=== PATIENT | female | born 1930 | race Caucasian/White ===

== ENCOUNTER 2017-01-28 19:05 | Emergency (ER) | payer OTHER ==
[~2017-01-28] VITALS: Ht 160 cm; Wt 58.4 kg
[~2017-01-28 19:05] MED LIST: BUME1TAB PO; CALC200S; IRBE1TAB37 PO; NEBI2.5 PO; PRAV40TA PO; RENAL CAPS PO; SPIR25 PO; WARF2.5 PO
[2017-01-28 19:34] VITALS: BP 201/93; PULSE 90; RESP 20; TEMP 97.3; O2SAT 98
[2017-01-28] MEDS ORDERED: SODIUM CHLORIDE 0.9% FLUSH 10 ML FLUSH IVF PRN (20:00)
[2017-01-28 20:10] VITALS: BP 180/83; PULSE 96; RESP 20
[2017-01-28] MEDS ORDERED: cloNIDine HCL 0.1 MG TAB PO ONE (20:15)
--- NOTE | 2017-01-28 20:21 | RADRPT ---
EXAM DATE/TIME: 01/28/2017 19:52 [facility] COMPARISON: Report only CHEST SINGLE AP, September 27, 2012, 11:25. INDICATIONS : Chest pain. MEDICAL HISTORY : Hypertension. SURGICAL HISTORY : Open heart. ENCOUNTER: Initial ACUITY: 1 day PAIN SCORE: 0/10 LOCATION: Bilateral chest FINDINGS: Soft tissue opacity projects over the right infrahilar region, indeterminate. No infiltrate, effusion or pneumothorax. Heart size within normal limits. Tortuous thoracic aorta noted. Patient has had previous median sternotomy. CONCLUSION: 1. Possible right infrahilar mass. CT of the chest recommended, preferably with intravenous contrast. 2. Otherwise no evidence of acute cardiopulmonary disease. Mason Rothman MD on January 28, 2017 at 20:17 Board Certified Radiologist. This report was verified electronically.
--- NOTE | 2017-01-28 20:26 | PD ---
HPI Chief Complaint: Cardiac Complaint Time Seen by Provider: 19:50 Travel History International Travel<30 days: No Contact w/Intl Traveler<30days: No Traveled to known affect area: No History of Present Illness HPI PATIENT STATES HAS CONCERNS ABOUT HER BLOOD PRESSURE BEING MORE ELEVATED THAN USUAL. PATIENT DENIES ANY C/O OLIVAREZ/DIZZY/CP/SOB/BACK PAIN/ABD PAIN/VISUAL CHANGES...PATIENT HAS NO COMPLAINT WHATSOEVER PMHX: RECENT AFIB ON COUMADIN, HTN, VALVE REPAIR, PCP: DR SMITH CARDIO: DR MCKAY [facility] Past Medical History Hx Anticoagulant Therapy: Yes Atrial Fibrillation: Yes Heart Rhythm Problems: Yes (afib) Cardiac Catheterization: Yes (2008 clean cath) Cardiovascular Problems: Yes High Cholesterol: Yes Cerebrovascular Accident: No Diabetes: No Diminished Hearing: No GERD: Yes Hypertension: Yes Respiratory: No ?: Not Past Surgical History Cardiac Surgery: Yes (TRICUSPID RING & MITRAL VALVE REPLACEMENT 2008) Hysterectomy: No Other Surgery: Yes (HEMMOROIDECTOMY) Social History Alcohol Use: No Tobacco Use: No Substance Use: No Allergies-Medications (Allergen,Severity, Reaction): Coded Allergies: No Known Allergies (Verified , 01/28/17) Reported Meds & Prescriptions Reported Meds & Active Scripts Active Reported Vitamin D3 (Cholecalciferol) 1,000 Unit Tab 1,000 Units PO DAILY Calcium 500 +D (Calcium Carbonate-Cholecalciferol) 500-400 Mg-Unit Tab 2 Tab PO BID Renal Vitamin (B-Complex W/ C & Folic Acid) 1 Cap 1 Cap PO DAILY If on dialysis, take after treatment. Warfarin 6 Mg Tab 6 Mg PO DAILY Amlodipine (Amlodipine Besylate) 2.5 Mg Tab 2.5 Mg PO DAILY Spironolactone 25 Mg Tab 25 Mg PO DAILY Pravastatin 40 Mg Tab 40 Mg PO DAILY Bystolic (Nebivolol) 2.5 Mg Tab 2.5 Mg PO DAILY Avapro (Irbesartan) 150 Mg Tab 150 Mg PO DAILY Review of Systems Except as stated in HPI: all other systems reviewed are Neg (NO ADDITIONAL COMPLAINTS SEE HPI) Physical Exam Narrative GENERAL: SKIN: Warm and dry. HEAD: Atraumatic. Normocephalic. EYES: Pupils equal and round. No scleral icterus. No injection or drainage. ENT: No nasal bleeding or discharge. Mucous membranes pink and moist. NECK: Trachea midline. No JVD. CARDIOVASCULAR: IRRegular rhythm BUT CONTROLLED VENTR RATE RESPIRATORY: No accessory muscle use. Clear to auscultation. Breath sounds equal bilaterally. GASTROINTESTINAL: Abdomen soft, non-tender, nondistended. MUSCULOSKELETAL: Extremities without clubbing, cyanosis, or edema. No obvious deformities. NEUROLOGICAL: Awake and alert. No obvious cranial nerve deficits. Motor grossly within normal limits. Five out of 5 muscle strength in the arms and legs. Normal speech. PSYCHIATRIC: Appropriate mood and affect; insight and judgment normal. Data Data Last Documented VS Orders Orders Electrocardiogram (01/28/17 19:50) B-Type Natriuretic Peptide (01/28/17 19:50) Ckmb (Isoenzyme) Profile (01/28/17 19:50) Complete Blood Count With Diff (01/28/17 19:50) Comprehensive Metabolic Panel (01/28/17 19:50) Prothrombin Time / Inr (Pt) (01/28/17 19:50) Act Partial Throm Time (Ptt) (01/28/17 19:50) Troponin I (01/28/17 19:50) Chest, Single Ap (01/28/17 19:50) Ecg Monitoring (01/28/17 19:50) Bilateral Bp Monitoring (01/28/17 19:50) Iv Access Insert/Monitor (01/28/17 19:50) Oximetry (01/28/17 19:50) Oxygen Administration (01/28/17 19:50) Sodium Chloride 0.9% Flush (Ns Flush) (01/28/17 20:00) Clonidine (Catapres) (01/28/17 20:15) Labs Laboratory Tests Test 01/28/17 20:30 White Blood Count 11.3 TH/MM3 Red Blood Count 4.29 MIL/MM3 Hemoglobin 13.0 GM/DL Hematocrit 38.7 % Mean Corpuscular Volume 90.3 FL Mean Corpuscular Hemoglobin 30.2 PG Mean Corpuscular Hemoglobin Concent 33.5 % Red Cell Distribution Width 12.9 % Platelet Count 287 TH/MM3 Mean Platelet Volume 7.5 FL Neutrophils (%) (Auto) 68.7 % Lymphocytes (%) (Auto) 17.4 % Monocytes (%) (Auto) 10.6 % Eosinophils (%) (Auto) 0.3 % Basophils (%) (Auto) 3.0 % Neutrophils # (Auto) 7.8 TH/MM3 Lymphocytes # (Auto) 2.0 TH/MM3 Monocytes # (Auto) 1.2 TH/MM3 Eosinophils # (Auto) 0.0 TH/MM3 Basophils # (Auto) 0.3 TH/MM3 CBC Comment AUTO DIFF Differential Comment AUTO DIFF CONFIRMED Prothrombin Time 28.8 SEC Prothromb Time International Ratio 2.5 RATIO Activated Partial Thromboplast Time 27.6 SEC Blood Urea Nitrogen 17 MG/DL Creatinine 1.20 MG/DL Random Glucose 103 MG/DL Total Protein 7.7 GM/DL Albumin 3.8 GM/DL Calcium Level 9.5 MG/DL Alkaline Phosphatase 67 U/L Aspartate Amino Transf (AST/SGOT) 33 U/L Alanine Aminotransferase (ALT/SGPT) 22 U/L Total Bilirubin 0.8 MG/DL Sodium Level 127 MEQ/L Potassium Level 4.4 MEQ/L Chloride Level 91 MEQ/L Carbon Dioxide Level 24.5 MEQ/L Anion Gap 12 MEQ/L Estimat Glomerular Filtration Rate 43 ML/MIN Total Creatine Kinase 83 U/L Troponin I LESS THAN 0.02 NG/ML B-Type Natriuretic Peptide 80 PG/ML MDM Medical Decision Making Medical Screen Exam Complete: Yes Emergency Medical Condition: Yes Medical Record Reviewed: Yes Interpretation(s) AFIB WITH CVR, NO STEMI PATTERN Differential Diagnosis htn emergency v nonstemi v anemia v kidney failure v electrolyte abnl Narrative Course no e/o anemia, no e/o nonstemi, no gross e/o kidney failure but did note hyponatremia of 127 nonsymptomatic. specific advise given to patient while taking her bp medicine as prescribed, f/u with pcp for further care/adjustments Diagnosis Primary Impression: Hypertension, poor control Additional Impression: HYPONATREMIA Patient Instructions: General Instructions, Hypertension (ED), Hyponatremia (ED ) Additional Instructions: FOR THE NEXT 2 OR 3 DAYS YOU ARE ADVISED TO INCREASE YOUR SODIUM INTAKE TO REPLENISH YOUR SODIUM IN YOUR BLOOD STREAM...KEEP TAKING BLOOD PRESSURE MEDICATION AND FOLLOW UP WITH YOUR PRIMARY CARE FOR ANY FURTHER ADJUSTMENT Disposition: 01 DISCHARGE HOME Condition: Stable Song Garvin MD Jan 28, 2017 20:26
[2017-01-28 20:42] VITALS: BP_SYST 156; BP_SYST 167; BP_DIAS 84; PULSE 84; RESP 20; O2SAT 95
[2017-01-28 20:44] VITALS: BP 156/84; PULSE 81; RESP 20
[2017-01-28 20:50] LABS: AUTOMATED NEUTROPHIL # 7.8 TH/MM3 (1.8-7.7); BASOPHIL # 0.3 TH/MM3 (0-0.2); EOSINOPHIL % 0.3 % (0.0-4.0); HEMATOCRIT 38.7 % (35.0-46.0); LYMPH % 17.4 % (9.0-44.0); MEAN CELL VOLUME 90.3 FL (80.0-100.0); MEAN CORPUSCULAR HEMOGLOBIN 30.2 PG (27.0-34.0); MEAN CORPUSCULAR HGB CONC 33.5 % (32.0-36.0); MONO % 10.6 % (0.0-8.0); NEUT % 68.7 % (16.0-70.0); PLATELET COUNT 287 TH/MM3 (150-450); RED BLOOD COUNT 4.29 MIL/MM3 (4.00-5.30); RED CELL DISTRIBUTION WIDTH 12.9 % (11.6-17.2); WHITE BLOOD COUNT 11.3 TH/MM3 (4.0-11.0)
[2017-01-28 20:54] LABS: HEMO FLAGS AUTO DIFF
[2017-01-28] MEDS ORDERED: WARF-60 PO (20:55)
[2017-01-28] MEDS ORDERED: VITA100064 PO (20:55)
[2017-01-28] MEDS ORDERED: SPIR25TA PO (20:55)
[2017-01-28] MEDS ORDERED: CALC1TAB12 PO (20:55)
[2017-01-28] MEDS ORDERED: RENACAP2 PO (20:55)
[2017-01-28] MEDS ORDERED: AMLO2.5T PO (20:55)
[2017-01-28] MEDS ORDERED: PRAV40TA2 PO (20:55)
[2017-01-28] MEDS ORDERED: BYST2.5T2 PO (20:55)
[2017-01-28] MEDS ORDERED: IRBE150T49 PO (20:55)
[2017-01-28 21:08] LABS: APTT (PATIENT) 27.6 SEC (24.3-30.1); CHLORIDE 91 MEQ/L (98-107); INTERNATIONAL NORMALIZED RATIO 2.5 RATIO; PROTHROMBIN TIME - PATIENT 28.8 SEC (9.8-11.6); SODIUM (NA) 127 MEQ/L (136-145)
[2017-01-28 21:11] LABS: ANION GAP 12 MEQ/L (5-15); BICARBONATE 24.5 MEQ/L (21.0-32.0)
[2017-01-28 21:12] LABS: BLOOD UREA NITROGEN 17 MG/DL (7-18)
[2017-01-28 21:14] LABS: ALT (GPT) 22 U/L (10-53); POTASSIUM 4.4 MEQ/L (3.5-5.1)
[2017-01-28 21:15] LABS: AST (GOT) 33 U/L (15-37); GLOMERULAR FILTRATION RATE 43 ML/MIN (>89)
[2017-01-28 21:16] LABS: TOTAL BILIRUBIN ADULT 0.8 MG/DL (0.2-1.0)
[2017-01-28 21:17] LABS: ALKALINE PHOSPHATASE 67 U/L (45-117)
[2017-01-28 21:21] LABS: CREATINE KINASE 83 U/L (26-192)
[2017-01-28 21:37] LABS: SCAN/DIFF AUTO DIFF CONFIRMED
[2017-01-28 21:45] VITALS: BP 155/84; PULSE 83; RESP 20; O2SAT 96
[2017-01-28 22:20] VITALS: BP 139/68
--- NOTE | 2017-01-29 18:24 | EKG ---
Date Performed: 01/28/2017 Time Performed: 20:19:35 PTAGE: 86 years EKG: ATRIAL FIBRILLATION ABNORMAL RHYTHM ECG PREVIOUS TRACING : 09/27/2012 17.41 Compared to the previous tracing NSR no longer present DOCTOR: Vinnie Sweet Interpretating Date/Time 01/29/2017 18:24:33
== END 2017-01-28 22:10 | disposition home or self-care (01) ==
LOC: PHED 19:05
DX: I10 Essential (primary) hypertension (principal); E87.1 Hypo-osmolality and hyponatremia; I48.91 Unspecified atrial fibrillation; E78.00 Pure hypercholesterolemia, unspecified; K21.9 Gastro-esophageal reflux disease without esophagitis; Z79.01 Long term (current) use of anticoagulants; Z95.2 Presence of prosthetic heart valve
CPT/HCPCS: 71010; 80053; 82550; 83880; 84484; 85025; 85610; 85730; 93005; 99285

== ENCOUNTER 2017-02-24 20:59 | Emergency (ER) | payer OTHER ==
[~2017-02-24] VITALS: Ht 160 cm; Wt 58.3 kg
[~2017-02-24 20:59] MED LIST changes: +AMLO2.5T PO; -BUME1TAB PO; +BYST2.5T2 PO; +CALC1TAB12 PO; -CALC200S; +IRBE150T49 PO; -IRBE1TAB37 PO; -NEBI2.5 PO; -PRAV40TA PO; +PRAV40TA2 PO; +RENACAP2 PO; -RENAL CAPS PO; -SPIR25 PO; +SPIR25TA PO; +VITA100064 PO; +WARF-60 PO; -WARF2.5 PO
[2017-02-24 21:09] VITALS: BP 192/88; PULSE 85; RESP 18; TEMP 97.6; O2SAT 97
[2017-02-24 21:25] VITALS: O2SAT 97
--- NOTE | 2017-02-24 21:36 | PD ---
HPI Chief Complaint: Hypertension Time Seen by Provider: 21:19 Travel History International Travel<30 days: No Contact w/Intl Traveler<30days: No Traveled to known affect area: No History of Present Illness HPI The patient is an 87-year-old female that comes in because of blood pressure elevation. She was told by her doctor to take one half of them amlodipine when this happens. She did that but she took it at 8:30 in arrived at the emergency department at 9. She denies any chest pain other than her left breast/chest wall pain that she has had on and off for months which is sharp and she denies any shortness of breath, headache or focal neurologic change. She came in to the emergency department January for the same thing and was found to have a hyponatremia and they gave her some clonidine and send her home. She does have a history of type cuspid and mitral valve replacement in 2008. She also has a history of chronic atrial fibrillation. She is on Coumadin for the atrial fibrillation. She denies any fever, dysuria, frequency, urgency, nausea, vomiting or diarrhea. She denies any syncopal or near syncopal spells or visual changes. She denies any back or abdominal pain. She says the only symptom she has when her blood pressure goes up is that she feels "nervous". It is hard to tell if she gets nervous and that makes her blood pressure go up. PFSH Past Medical History Hx Anticoagulant Therapy: Yes Atrial Fibrillation: Yes Heart Rhythm Problems: Yes Cardiac Catheterization: Yes Cardiovascular Problems: Yes High Cholesterol: Yes Cerebrovascular Accident: No Diabetes: No Diminished Hearing: No GERD: Yes Hypertension: Yes Respiratory: No Tetanus Vaccination: > 5 Years Influenza Vaccination: Yes ?: Not Menopausal: Yes Past Surgical History Cardiac Surgery: Yes (TRICUSPID RING & MITRAL VALVE REPLACEMENT 2008) Hysterectomy: No Other Surgery: Yes (HEMORROIDECTOMY) Social History Alcohol Use: No Tobacco Use: No Substance Use: No Allergies-Medications (Allergen,Severity, Reaction): Coded Allergies: No Known Allergies (Verified , 02/24/17) Reported Meds & Prescriptions Reported Meds & Active Scripts Active Reported Vitamin D3 (Cholecalciferol) 1,000 Unit Tab 1,000 Units PO DAILY Calcium 500 +D (Calcium Carbonate-Cholecalciferol) 500-400 Mg-Unit Tab 2 Tab PO BID Renal Vitamin (B-Complex W/ C & Folic Acid) 1 Cap 1 Cap PO DAILY If on dialysis, take after treatment. Warfarin 6 Mg Tab 6 Mg PO DAILY Amlodipine (Amlodipine Besylate) 2.5 Mg Tab 2.5 Mg PO DAILY Spironolactone 25 Mg Tab 25 Mg PO DAILY Pravastatin 40 Mg Tab 40 Mg PO DAILY Bystolic (Nebivolol) 2.5 Mg Tab 2.5 Mg PO DAILY Avapro (Irbesartan) 150 Mg Tab 150 Mg PO DAILY Review of Systems Except as stated in HPI: all other systems reviewed are Neg Physical Exam Narrative GENERAL: The patient is alert, oriented 3 in no apparent distress. Her vital signs show blood pressure 192/88 but otherwise normal. SKIN: Focused skin assessment warm/dry. HEAD: Atraumatic. Normocephalic. EYES: Pupils equal and round. No scleral icterus. No injection or drainage. ENT: No nasal bleeding or discharge. Mucous membranes pink and moist. NECK: Trachea midline. No JVD. CARDIOVASCULAR: Atrial fibrillation rhythm with controlled rate of 85. No murmur appreciated. RESPIRATORY: No accessory muscle use. Clear to auscultation. Breath sounds equal bilaterally. GASTROINTESTINAL: Abdomen soft, non-tender, nondistended. Hepatic and splenic margins not palpable. No guarding or rebound is present and no pulsatile masses. MUSCULOSKELETAL: No obvious deformities. No clubbing. No cyanosis. No edema. NEUROLOGICAL: Awake and alert. No obvious cranial nerve deficits. Motor grossly within normal limits. Normal speech and gait. PSYCHIATRIC: Appropriate mood and affect; insight and judgment normal. Data Data Last Documented VS Vital Signs Date Time Temp Pulse Resp B/P (MAP) Pulse Ox O2 Delivery O2 Flow Rate FiO2 02/24/17 21:24 85 18 97 Room Air 02/24/17 21:09 97.6 192/88 (122) Orders Orders Electrocardiogram (02/24/17 21:36) B-Type Natriuretic Peptide (02/24/17 21:36) Complete Blood Count With Diff (02/24/17 21:36) Comprehensive Metabolic Panel (02/24/17 21:36) Magnesium (Mg) (02/24/17 21:36) Prothrombin Time / Inr (Pt) (02/24/17 21:36) Troponin I (02/24/17 21:36) Ecg Monitoring (02/24/17 21:36) Iv Access Insert/Monitor (02/24/17 21:36) Oximetry (02/24/17 21:36) Oxygen Administration (02/24/17 21:36) Sodium Chloride 0.9% Flush (Ns Flush) (02/24/17 21:45) Chest, Pa & Lat (02/24/17 21:36) MDM Medical Decision Making Medical Screen Exam Complete: Yes Emergency Medical Condition: Yes Medical Record Reviewed: Yes Interpretation(s) The EKG shows atrial fibrillation with a controlled rate of [address] elevation or depression. Differential Diagnosis Hypertension poor control, hypertension urgency, acute coronary syndrome, non- STEMI, renal insufficiency, electrolyte abnormality, anxiety Narrative Course The patient is basically asymptomatic as far as her blood pressures concern. It is now 10 PM and the blood pressure is 155/76. Any additional blood pressure reduction would actually be dangerous, she will go home, while asleep, have decreased oxygenation and this could possibly lead to a stroke. This blood pressure is acceptable for the emergency department and the patient should follow-up with her primary care physician next week. It is difficult to discern whether the anxiety she had elevated the blood pressure are whether the blood pressure elevation created the feeling of anxiety. Nevertheless, this has resolved. Diagnosis Primary Impression: Elevated blood pressure reading Additional Instructions: Follow-up next week with your primary care physician. Disposition: 01 DISCHARGE HOME Condition: Stable Cristopher Graham MD Feb 24, 2017 21:36
[2017-02-24] MEDS ORDERED: SODIUM CHLORIDE 0.9% FLUSH 10 ML FLUSH IVF PRN (21:45)
[2017-02-24 22:01] VITALS: BP 155/76; PULSE 83; RESP 18; O2SAT 97
--- NOTE | 2017-02-25 16:40 | EKG ---
Date Performed: 02/24/2017 Time Performed: 21:46:49 PTAGE: 87 years EKG: ATRIAL FIBRILLATION LOW QRS VOLTAGE IN PRECORDIAL LEADS ABNORMAL RHYTHM ECG Since PREVIOUS TRACING , no significant change noted PREVIOUS TRACIN01/28/2017 20.19 DOCTOR: Megan Pacheco Interpretating Date/Time 02/25/2017 16:39:00
== END 2017-02-24 22:33 | disposition home or self-care (01) ==
LOC: PHED 20:59
DX: I10 Essential (primary) hypertension (principal); E78.00 Pure hypercholesterolemia, unspecified; Z95.2 Presence of prosthetic heart valve; Z79.01 Long term (current) use of anticoagulants; I48.2 Chronic atrial fibrillation; K21.9 Gastro-esophageal reflux disease without esophagitis
CPT/HCPCS: 93005

== ENCOUNTER 2017-07-21 14:52 | Emergency (ER) | payer OTHER ==
[~2017-07-21] VITALS: Ht 160 cm; Wt 59.0 kg
[2017-07-21 14:56] VITALS: BP 157/75; PULSE 75; RESP 16; TEMP 97.1; O2SAT 98
--- NOTE | 2017-07-21 15:13 | PD ---
HPI Chief Complaint: Cardiac Complaint Time Seen by Provider: 15:13 Travel History International Travel<30 days: No Contact w/Intl Traveler<30days: No Traveled to known affect area: No History of Present Illness HPI 87-year-old female came to the emergency room for running high blood pressure and high heart rate for past 2 days. She has history of A. fib and she kept a log of her blood pressure and heart rate. The maximum blood pressure was in the 150s systolic and the maximum heart rate was in the 90s. Patient says along with this she occasionally starts feeling a little bit of tingling on all 4 extremities. No history of dizziness or lightheadedness. No history of syncopal episode or chest pain. 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 Vital signs here in triage were within acceptable limits. PFSH Past Medical History Narrative Medical list of her past medical, surgical, social and family history is reviewed from the nursing note. Hx Anticoagulant Therapy: Yes Atrial Fibrillation: Yes Heart Rhythm Problems: Yes Cardiac Catheterization: Yes Cardiovascular Problems: Yes High Cholesterol: Yes Cerebrovascular Accident: No Diabetes: No Diminished Hearing: No GERD: Yes Hypertension: Yes Respiratory: No Menopausal: Yes Past Surgical History Cardiac Surgery: Yes (TRICUSPID RING & MITRAL VALVE REPLACEMENT 2008) Hysterectomy: No Other Surgery: Yes (HEMORROIDECTOMY) Social History Alcohol Use: No Tobacco Use: No Substance Use: No Allergies-Medications (Allergen,Severity, Reaction): Coded Allergies: No Known Allergies (Verified Adverse Reaction, Unknown, 07/21/17) Comments No known drug allergies. Reported Meds & Prescriptions Reported Meds & Active Scripts Active Reported Amlodipine (Amlodipine Besylate) 5 Mg Tab 5 Mg PO DAILY Vitamin D3 (Cholecalciferol) 1,000 Unit Tab 1,000 Units PO DAILY Calcium 500 +D (Calcium Carbonate-Cholecalciferol) 500-400 Mg-Unit Tab 2 Tab PO BID Renal Vitamin (B-Complex W/ C & Folic Acid) 1 Cap 1 Cap PO DAILY If on dialysis, take after treatment. Warfarin 6 Mg Tab 6 Mg PO DAILY Spironolactone 25 Mg Tab 25 Mg PO DAILY Pravastatin 40 Mg Tab 40 Mg PO DAILY Bystolic (Nebivolol) 2.5 Mg Tab 2.5 Mg PO DAILY Avapro (Irbesartan) 150 Mg Tab 150 Mg PO DAILY Narrative Medication List of home medications reviewed from the nursing note. Review of Systems Except as stated in HPI: all other systems reviewed are Neg Physical Exam Narrative GENERAL: Awake, alert, elderly, frail SKIN: Focused skin assessment warm/dry. HEAD: Atraumatic. Normocephalic. EYES: Pupils equal and round. No scleral icterus. No injection or drainage. ENT: No nasal bleeding or discharge. Mucous membranes pink and moist. NECK: Trachea midline. No JVD. CARDIOVASCULAR: Irregularly irregular rhythm. No murmur appreciated. RESPIRATORY: No accessory muscle use. Clear to auscultation. Breath sounds equal bilaterally. GASTROINTESTINAL: Abdomen soft, non-tender, nondistended. Hepatic and splenic margins not palpable. MUSCULOSKELETAL: No obvious deformities. No clubbing. No cyanosis. No edema. NEUROLOGICAL: Awake and alert. No obvious cranial nerve deficits. Motor grossly within normal limits. Normal speech. PSYCHIATRIC: Appropriate mood and affect; insight and judgment normal. Data Data Last Documented VS Vital Signs Date Time Temp Pulse Resp B/P (MAP) Pulse Ox O2 Delivery O2 Flow Rate FiO2 07/21/17 19:02 07/21/17 18:05 79 16 97 Room Air 07/21/17 14:56 97.1 Orders Orders Basic Metabolic Panel (Bmp) (07/21/17 15:19) Complete Blood Count With Diff (07/21/17 15:19) Magnesium (Mg) (07/21/17 15:19) Prothrombin Time / Inr (Pt) (07/21/17 15:19) Troponin I (07/21/17 15:19) Chest, Single Ap (07/21/17 15:19) Ecg Monitoring (07/21/17 15:19) Bilateral Bp Monitoring (07/21/17 15:19) Iv Access Insert/Monitor (07/21/17 15:19) Oximetry (07/21/17 15:19) Oxygen Administration (07/21/17 15:19) Sodium Chloride 0.9% Flush (Ns Flush) (07/21/17 15:30) Electrocardiogram (07/21/17 15:19) Sodium Chlorid 0.9% 500 Ml Inj (Ns 500 M (07/21/17 17:15) Basic Metabolic Panel (Bmp) (07/21/17 18:03) Ed Discharge Order (07/21/17 18:48) Labs Laboratory Tests Test 07/21/17 15:25 07/21/17 18:05 White Blood Count 8.8 TH/MM3 Red Blood Count 4.16 MIL/MM3 Hemoglobin 12.8 GM/DL Hematocrit 38.3 % Mean Corpuscular Volume 92.1 FL Mean Corpuscular Hemoglobin 30.8 PG Mean Corpuscular Hemoglobin Concent 33.4 % Red Cell Distribution Width 12.4 % Platelet Count 283 TH/MM3 Mean Platelet Volume 7.3 FL Neutrophils (%) (Auto) 73.0 % Lymphocytes (%) (Auto) 18.2 % Monocytes (%) (Auto) 7.3 % Eosinophils (%) (Auto) 0.3 % Basophils (%) (Auto) 1.2 % Neutrophils # (Auto) 6.5 TH/MM3 Lymphocytes # (Auto) 1.6 TH/MM3 Monocytes # (Auto) 0.6 TH/MM3 Eosinophils # (Auto) 0.0 TH/MM3 Basophils # (Auto) 0.1 TH/MM3 CBC Comment DIFF FINAL Differential Comment Prothrombin Time 20.1 SEC Prothromb Time International Ratio 2.0 RATIO Blood Urea Nitrogen 17 MG/DL 15 MG/DL Creatinine 1.20 MG/DL 0.99 MG/DL Random Glucose 116 MG/DL 122 MG/DL Calcium Level 9.2 MG/DL 8.5 MG/DL Magnesium Level 2.1 MG/DL Sodium Level 124 MEQ/L 127 MEQ/L Potassium Level 3.8 MEQ/L 4.1 MEQ/L Chloride Level 89 MEQ/L 94 MEQ/L Carbon Dioxide Level 27.1 MEQ/L 25.5 MEQ/L Anion Gap 8 MEQ/L 8 MEQ/L Estimat Glomerular Filtration Rate 43 ML/MIN 53 ML/MIN Troponin I LESS THAN 0.02 NG/ML [facility] Medical Decision Making Medical Screen Exam Complete: Yes Emergency Medical Condition: Yes Medical Record Reviewed: Yes Interpretation(s) Twelve-lead EKG was reviewed by me. Atrial fibrillation, normal axis. Heart rate of 78 bpm. Differential Diagnosis Electrolyte abnormality, ACS, anxiety Narrative Course 2:57 PM awaiting for the blood test results to come back. In my opinion if the test results are normal patient will be discharged home and I have explained that to the patient. None of her blood pressure or heart rate was high enough that requires medical intervention in the emergency room and I have explained this to her as well. Upon discharge she needs to contact the television engineering teacher. 4 PM awaiting for the blood test result. Case was signed out to the oncoming ER physician. Procedures EKG Prior to Arrival: Sari Ramirez MD Jul 21, 2017 15:13
[2017-07-21 15:22] VITALS: O2SAT 97
[2017-07-21] MEDS ORDERED: AMLO5TAB2 PO (15:28)
[2017-07-21] MEDS ORDERED: SODIUM CHLORIDE 0.9% FLUSH 10 ML FLUSH IVF PRN (15:30)
[2017-07-21 15:31] LABS: AUTOMATED NEUTROPHIL # 6.5 TH/MM3 (1.8-7.7); BASOPHIL # 0.1 TH/MM3 (0-0.2); BASOPHIL % 1.2 % (0.0-2.0); EOSINOPHIL % 0.3 % (0.0-4.0); HEMATOCRIT 38.3 % (35.0-46.0); HEMOGLOBIN 12.8 GM/DL (11.6-15.3); LYMPH % 18.2 % (9.0-44.0); LYMPHOCYTE # 1.6 TH/MM3 (1.0-4.8); MEAN CELL VOLUME 92.1 FL (80.0-100.0); MEAN CORPUSCULAR HEMOGLOBIN 30.8 PG (27.0-34.0); MEAN CORPUSCULAR HGB CONC 33.4 % (32.0-36.0); MEAN PLATELET VOLUME 7.3 FL (7.0-11.0); MONO % 7.3 % (0.0-8.0); MONOCYTE # 0.6 TH/MM3 (0-0.9); PLATELET COUNT 283 TH/MM3 (150-450); RED BLOOD COUNT 4.16 MIL/MM3 (4.00-5.30); RED CELL DISTRIBUTION WIDTH 12.4 % (11.6-17.2); WHITE BLOOD COUNT 8.8 TH/MM3 (4.0-11.0)
[2017-07-21 15:49] LABS: PROTHROMBIN TIME - PATIENT 20.1 SEC (9.8-11.6)
[2017-07-21 16:24] LABS: BICARBONATE 27.1 MEQ/L (21.0-32.0); BLOOD UREA NITROGEN 17 MG/DL (7-18); CALCIUM 9.2 MG/DL (8.5-10.1); CHLORIDE 89 MEQ/L (98-107); GLOMERULAR FILTRATION RATE 43 ML/MIN (>89); GLUCOSE,RANDOM 116 MG/DL (74-106); MAGNESIUM 2.1 MG/DL (1.5-2.5); TROPONIN I LESS THAN 0.02 NG/ML (0.02-0.05)
[2017-07-21 16:26] LABS: SODIUM (NA) 124 MEQ/L (136-145)
--- NOTE | 2017-07-21 16:37 | RADRPT ---
EXAM DATE/TIME: 07/21/2017 15:25 [facility] COMPARISON: CHEST SINGLE AP, January 28, 2017, 19:52. INDICATIONS : Chest pain. MEDICAL HISTORY : Hypertension. A-fib. SURGICAL HISTORY : Open heart. ENCOUNTER: Initial ACUITY: 1 day PAIN SCORE: 5/10 LOCATION: Bilateral chest FINDINGS: The heart is moderately enlarged. Median sternotomy wires from previous open heart surgery are noted. Lungs are hyperinflated but clear. Osseous structures are intact. CONCLUSION: Cardiomegaly Stable chest without evidence of acute process. Bao Rivera MD on July 21, 2017 at 16:34 Board Certified Radiologist. This report was verified electronically.
[2017-07-21 16:58] VITALS: BP_SYST 140; BP_SYST 144; BP_DIAS 68; BP_DIAS 77
[2017-07-21] MEDS ORDERED: SODIUM CHLORID 0.9% 500 ML INJ 500 ML IV ONE (17:15)
[2017-07-21 18:05] VITALS: BP 141/76; PULSE 79; RESP 16; O2SAT 97
[2017-07-21 18:37] LABS: BICARBONATE 25.5 MEQ/L (21.0-32.0); CALCIUM 8.5 MG/DL (8.5-10.1)
[2017-07-21 18:41] LABS: CREATININE 0.99 MG/DL (0.50-1.00)
--- NOTE | 2017-07-21 18:48 | PD ---
Physical Exam Narrative Patient signed out to me by Dr. Hutchinson. Please see her documentation for complete details. Briefly, patient had been monitoring her pulse and blood pressure and became nervous because both were elevated. Here, her pulse rate is controlled in the 70s and her blood pressure has been 140-150 systolic. She has no complaints of chest pain or SOB. Exam shows no edema of her legs. Lungs clear. Data Data Last Documented VS Vital Signs Date Time Temp Pulse Resp B/P (MAP) Pulse Ox O2 Delivery O2 Flow Rate FiO2 07/21/17 18:05 79 16 141/76 (97) 97 Room Air 07/21/17 14:56 97.1 Orders Orders Basic Metabolic Panel (Bmp) (07/21/17 15:19) Complete Blood Count With Diff (07/21/17:) Magnesium (Mg) (07/21/17 15:19) Prothrombin Time / Inr (Pt) (07/21/17 15:19) Troponin I (07/21/17 15:19) Chest, Single Ap (07/21/17 15:19) Ecg Monitoring (07/21/17 15:19) Bilateral Bp Monitoring (07/21/17 15:19) Iv Access Insert/Monitor (07/21/17 15:19) Oximetry (07/21/17 15:19) Oxygen Administration (07/21/17 15:19) Sodium Chloride 0.9% Flush (Ns Flush) (07/21/17 15:30) Electrocardiogram (07/21/17 15:19) Sodium Chlorid 0.9% 500 Ml Inj (Ns 500 M (07/21/17 17:15) Basic Metabolic Panel (Bmp) (07/21/17 18:03) Labs Laboratory Tests Test 07/21/17 15:25 07/21/17 18:05 White Blood Count 8.8 TH/MM3 Red Blood Count 4.16 MIL/MM3 Hemoglobin 12.8 GM/DL Hematocrit 38.3 % Mean Corpuscular Volume 92.1 FL Mean Corpuscular Hemoglobin 30.8 PG Mean Corpuscular Hemoglobin Concent 33.4 % Red Cell Distribution Width 12.4 % Platelet Count 283 TH/MM3 Mean Platelet Volume 7.3 FL Neutrophils (%) (Auto) 73.0 % Lymphocytes (%) (Auto) 18.2 % Monocytes (%) (Auto) 7.3 % Eosinophils (%) (Auto) 0.3 % Basophils (%) (Auto) 1.2 % Neutrophils # (Auto) 6.5 TH/MM3 Lymphocytes # (Auto) 1.6 TH/MM3 Monocytes # (Auto) 0.6 TH/MM3 Eosinophils # (Auto) 0.0 TH/MM3 Basophils # (Auto) 0.1 TH/MM3 CBC Comment DIFF FINAL Differential Comment Prothrombin Time 20.1 SEC Prothromb Time International Ratio 2.0 RATIO Blood Urea Nitrogen 17 MG/DL 15 MG/DL Creatinine 1.20 MG/DL 0.99 MG/DL Random Glucose 116 MG/DL 122 MG/DL Calcium Level 9.2 MG/DL 8.5 MG/DL Magnesium Level 2.1 MG/DL Sodium Level 124 MEQ/L 127 MEQ/L Potassium Level 3.8 MEQ/L 4.1 MEQ/L Chloride Level 89 MEQ/L 94 MEQ/L Carbon Dioxide Level 27.1 MEQ/L 25.5 MEQ/L Anion Gap 8 MEQ/L 8 MEQ/L Estimat Glomerular Filtration Rate 43 ML/MIN 53 ML/MIN Troponin I LESS THAN 0.02 NG/ML MDM Supervised Visit with [facility]: No Narrative Course Labs showed a sodium of 124. Patient has had low sodium before and says she has had issues with this for a while. Previous sodiums have been 128. Patient offered admission, but says she really wants to go home. She was given a small bolus of NS and sodium improved to 127. Patient will be discharged home. She is advised to follow up with her doctors as soon as possible. Advised to return at any time for any worsening symptoms. Diagnosis Primary Impression: Hypertension Qualified Codes: I10 - Essential (primary) hypertension Additional Impression: Hyponatremia Patient Instructions: Chronic Hypertension (ED), General Instructions, Hyponatremia (ED) Additional Instruction: Follow-up with your doctors as soon as possible. Your sodium level was a little low today. Return to the ED at anytime for any worsening symptoms. Disposition: 01 DISCHARGE HOME Condition: Stable Cass Pastor MD Jul 21, 2017 18:48
--- NOTE | 2017-07-23 00:53 | EKG ---
Date Performed: 07/21/2017 Time Performed: 15:42:13 PTAGE: 87 years EKG: ATRIAL FIBRILLATION ABNORMAL RHYTHM ECG PREVIOUS TRACING : 02/24/2017 21.46 Since the prior tracing, there has been no significant bangura juan carlos DOCTOR: Vinnie Sweet Interpretating Date/Time 07/23/2017 00:51:15
== END 2017-07-21 19:05 | disposition home or self-care (01) ==
LOC: PHED 14:52
DX: I10 Essential (primary) hypertension (principal); E87.1 Hypo-osmolality and hyponatremia; I48.91 Unspecified atrial fibrillation; E78.00 Pure hypercholesterolemia, unspecified; K21.9 Gastro-esophageal reflux disease without esophagitis; Z95.2 Presence of prosthetic heart valve; Z79.01 Long term (current) use of anticoagulants; Z79.899 Other long term (current) drug therapy
CPT/HCPCS: 71045; 80048; 83735; 84484; 85025; 85610; 93005; 96360; 99285; J7040

== ENCOUNTER 2017-10-22 17:52 | Emergency (ER) | payer OTHER ==
[~2017-10-22] VITALS: Ht 160 cm; Wt 57.5 kg
[~2017-10-22 17:52] MED LIST changes: -AMLO2.5T PO; +AMLO5TAB2 PO
[2017-10-22 17:56] VITALS: BP 183/84; PULSE 83; RESP 16; TEMP 97.5; O2SAT 95
--- NOTE | 2017-10-22 18:27 | PD ---
HPI Chief Complaint: Cardiac Complaint Time Seen by Provider: 18:20 Travel History International Travel<30 days: No Contact w/Intl Traveler<30days: No Traveled to known affect area: No History of Present Illness HPI Patient presents with complaints of epigastric discomfort approximately week and a half. Denies any aggravating or alleviating factors. Intermittent in nature, dull, denies that it is worse after food. Denies any acid brash. Reports evaluation by her primary care provider who recommended regular use of Tums. Denies any chest pain. Denies any shortness of breath. Denies any urinary or bowel symptoms. Denies any nausea vomiting diarrhea or fever. She is on Coumadin for atrial fibrillation and denies any chronic use of nonsteroidal anti-inflammatories. PFSH Past Medical History Hx Anticoagulant Therapy: Yes Atrial Fibrillation: Yes Heart Rhythm Problems: Yes Cardiac Catheterization: Yes Cardiovascular Problems: Yes High Cholesterol: Yes Cerebrovascular Accident: No Diabetes: No Diminished Hearing: No GERD: Yes Hypertension: Yes Respiratory: No ?: Not Menopausal: Yes Past Surgical History Cardiac Surgery: Yes (TRICUSPID RING & MITRAL VALVE REPLACEMENT 2008) Hysterectomy: No Other Surgery: Yes (HEMORROIDECTOMY) Social History Alcohol Use: No Tobacco Use: No Substance Use: No Allergies-Medications (Allergen,Severity, Reaction): Coded Allergies: Sulfa (Sulfonamide Antibiotics) (Verified Allergy, Unknown, "INTERFERES WITH MY BLOOD THINNER", 10/22/17) Reported Meds & Prescriptions Reported Meds & Active Scripts Active Reported Amlodipine (Amlodipine Besylate) 5 Mg Tab 2.5 Mg PO DAILY Vitamin D3 (Cholecalciferol) 1,000 Unit Tab 1,000 Units PO DAILY Calcium 500 +D (Calcium Carbonate-Cholecalciferol) 500-400 Mg-Unit Tab 2 Tab PO BID Renal Vitamin (B-Complex W/ C & Folic Acid) 1 Cap 1 Cap PO DAILY If on dialysis, take after treatment. Warfarin 6 Mg Tab 6 Mg PO DAILY Spironolactone 25 Mg Tab 25 Mg PO DAILY Pravastatin 40 Mg Tab 40 Mg PO DAILY Bystolic (Nebivolol) 2.5 Mg Tab 2.5 Mg PO DAILY Avapro (Irbesartan) 150 Mg Tab 150 Mg PO DAILY Review of Systems General / Constitutional: No: Fever Eyes: No: Visual changes HENT: No: Headaches Cardiovascular: No: Chest Pain or Discomfort Respiratory: No: Shortness of Breath Gastrointestinal: Positive: Indigestion, No: Abdominal Pain Genitourinary: No: Dysuria Musculoskeletal: No: Pain Skin: No Rash Neurologic: No: Weakness Psychiatric: No: Depression Endocrine: No: Polydipsia Hematologic/Lymphatic: No: Easy Bruising Physical Exam Narrative GENERAL: Well-nourished, well-developed patient. SKIN: Focused skin assessment warm/dry. HEAD: Normocephalic. EYES: No scleral icterus. No injection or drainage. NECK: Supple, trachea midline. No JVD or lymphadenopathy. CARDIOVASCULAR: Irregular r rate and rhythm without murmurs, gallops, or rubs. RESPIRATORY: Breath sounds equal bilaterally. No accessory muscle use. GASTROINTESTINAL: Abdomen soft, non-tender, nondistended. On exam patient belching regularly MUSCULOSKELETAL: No cyanosis, or edema. BACK: Nontender without obvious deformity. No CVA tenderness. Data Data Last Documented VS Vital Signs Date Time Temp Pulse Resp B/P (MAP) Pulse Ox O2 Delivery O2 Flow Rate FiO2 10/22/17 17:56 97.5 83 16 183/84 (117) 95 Orders Orders Al-Mag Hy-Si 40-40-4 Mg/Ml Liq (Mag-Al P (10/22/17 18:30) Lidocaine 2% Viscous (Xylocaine 2% Visco (10/22/17 18:30) MDM Medical Decision Making Medical Screen Exam Complete: Yes Emergency Medical Condition: Yes Differential Diagnosis GERD, gastritis, gastric ulcer, duodenal ulcer Narrative Course Assessment plan discussed with patient at bedside. EKG reveals atrial fibrillation rate 92. Patient received GI cocktail with resolution of all symptoms. Diagnosis Primary Impression: Gastritis Qualified Codes: K29.00 - Acute gastritis without bleeding Patient Instructions: General Instructions Additional Instructions: Encouraged to avoid aggravating factors of reflux including but not limited to alcohol tobacco late and large meals spicy meals and weight. Encouraged a bland high-fiber brat diet. Encouraged to follow-up with PCP. Encouraged to return to emergency room with any onset of new symptoms. Med/Other Pt SpecificInfo: Prescription(s) given Scripts Ranitidine (Zantac) 150 Mg Tab 150 MG PO BID for Reduce Stomach Acid, #30 TAB 0 Refills Prov: Rolf Brown MD 10/22/17 Disposition: 01 DISCHARGE HOME Condition: Good Rolf Brown MD October 22, 2017 18:27
[2017-10-22] MEDS ORDERED: LIDOCAINE VISCOUS 2% SOLN 15 ML UDC PO ONE (18:30)
[2017-10-22] MEDS ORDERED: ALUMINUM/MAGNESIUM/SIMETH 30 ML CUP PO ONE (18:30)
[2017-10-22] MEDS ORDERED: ZANT150T2 PO (19:07)
[2017-10-22 19:16] VITALS: BP 143/71
--- NOTE | 2017-10-23 21:17 | EKG ---
Date Performed: 10/22/2017 Time Performed: 18:04:18 PTAGE: 87 years EKG: ATRIAL FIBRILLATION WITH ABERRANT CONDUCTION OR VENTRICULAR PREMATURE COMPLEXES MINIMAL ST DEPRESSION ABNORMAL RHYTHM ECG PREVIOUS TRACING : 07/21/2017 15.42 Since the previous tracing, no significant change noted DOCTOR: Ziggy Shelton Interpretating Date/Time 10/23/2017 21:16:55
== END 2017-10-22 19:33 | disposition home or self-care (01) ==
LOC: PHED 17:52
DX: K29.00 Acute gastritis without bleeding (principal); Z79.01 Long term (current) use of anticoagulants; I48.91 Unspecified atrial fibrillation; E78.00 Pure hypercholesterolemia, unspecified; K21.9 Gastro-esophageal reflux disease without esophagitis; I10 Essential (primary) hypertension
CPT/HCPCS: 93005